=== PATIENT | female | born 1970 | race Caucasian/White ===

== ENCOUNTER → 2016-05-20 | Outpatient (CLI) | payer MEDICARE, BC ==
[2016-05-20 12:27] LABS: ALT 31 U/L (9-52); AST 14 U/L (14-36); Cholesterol 166 mg/dL (<200); HDL Cholesterol 61 mg/dL (40-60); Triglycerides 158 mg/dL (<150)
== END | disposition home or self-care (01) ==
LOC: LABWHC1 11:36
PROVIDERS: ATTEND Internal Medicine Interventional Cardiology
DX: E78.2 Mixed hyperlipidemia (principal)
CPT/HCPCS: 36415; 80061; 84450; 84460

== ENCOUNTER → 2016-05-27 | Outpatient (CLI) | payer MEDICARE, BC ==
--- NOTE | 2016-05-27 18:02 | PN ---
DATE OF SERVICE: 05/27/2016 This patient is a 46-year-old lady who has been followed in the sleep center for treatment of severe obstructive sleep apnea/hypopnea syndrome; apnea-hypopnea index 48.1 by results of sleep study in 2014. Patient is on treatment with CPAP every night for the whole night. [place] Sleepiness Scale today is 10. Patient's weight has increased since titration from 323.1 pounds up to 352 pounds today, which is about 30 pounds up. Patient did not bring her CPAP unit with her, so I do not have information from the machine about usage and about breathing. MEDICATIONS: 1. Metformin. 2. Glimepiride. 3. Plavix. 4. Metoprolol. 5. Atorvastatin. 6. Losartan. 7. Aspirin. 8. Lantus. 9. Flexeril. 10. Hydrocodone. 11. Tramadol. 12. Loratadine. During physical exam, patient is in no distress. VITAL SIGNS: BP 196/84, HR 74, RR 16. Height 5 feet 4 inches. Weight 352. BMI 60.0. Neck 18-3/4 inches in circumference. Temperature 97.3. Oxygen saturation at room air 96%. HEENT: PERRLA, EOMI. Evaluation of oropharynx shows extremely low position of soft palate. ABDOMEN: Obese. LEGS: Some obesity, but possible no swelling. Status post amputation of 2 toes on the left foot. IMPRESSION: 1. Severe obstructive sleep apnea/hypopnea syndrome. Patient continues to use her CPAP equipment, benefitting from treatment. 2. Obesity. Patient's weight has increased by around 30 pounds since previous titration. 3. Patient has some daytime sleepiness. [place] Sleepiness Scale is 10. 4. Hypertension. 5. Coronary artery disease, status post stent insertion. 6. Diabetes mellitus. 7. Status post amputation of 2 toes on the left foot. 8. Diabetic retinopathy. 9. Diabetic peripheral neuropathy. 10. Balance problems, but patient believes that her balance problems are mostly related to absence of toes. 11. Status post carotid endarterectomy. PLAN: 1. Continue treatment with CPAP every night for the whole night. 2. Follow-up visit in several months to check apnea-hypopnea index reading from the machine because patient's weight increased significantly. If index is increased, we may need to proceed with CPAP re-titration. 3. Losing weight. 4. Sleep hygiene with regular time in bed for at least 8 hours. 5. Prescription for all necessary CPAP supplies. Thank you very much for allowing me to participate in the management of your patient. Sincerely, Israel Garland MD, PhD, FAASM. Diplomat of [place] [employer], Sleep Medicine Board by [place] [employer], [place] [employer]
== END | disposition home or self-care (01) ==
LOC: SLEEP 13:51
PROVIDERS: ATTEND Internal Medicine
DX: G47.33 Obstructive sleep apnea (adult) (pediatric) (principal); E66.9 Obesity, unspecified; Z68.44 Body mass index [BMI] 60.0-69.9, adult; I10 Essential (primary) hypertension; I25.10 Atherosclerotic heart disease of native coronary artery without angina pectoris; Z95.5 Presence of coronary angioplasty implant and graft; Z89.422 Acquired absence of other left toe(s); E11.319 Type 2 diabetes mellitus with unspecified diabetic retinopathy without macular edema; E11.40 Type 2 diabetes mellitus with diabetic neuropathy, unspecified; R26.89 Other abnormalities of gait and mobility; Z98.890 Other specified postprocedural states; Z79.899 Other long term (current) drug therapy; Z79.4 Long term (current) use of insulin

== ENCOUNTER → 2016-07-15 | Outpatient (CLI) | payer MEDICARE, BC ==
--- NOTE | 2016-07-15 16:03 | PN ---
Patient is a 46-year-old lady who has been followed in the sleep center for treatment of obstructive sleep apnea/hypopnea syndrome. Patient continued to use her CPAP equipment every night for the whole night according to her without significant problems, sometimes she may not get enough sleep because of her family issues related to taking care of her father. I checked her CPAP unit. CPAP pressure is 12 cm of water. Ramp is 5 minutes, humidity at the level of 4. Usage is every night, but usage for more than 4 hours per night is 23 out of 30 which is acceptable level of compliance. Average usage is 6.8 hours. Leak is 13 L/min, which is in normal range. Apnea-hypopnea index reading is only 1.0, which is totally normal. My concern was that patient increased her weight. [place] Sleepiness Scale increased to 14. MEDICATIONS: 1. Glimepiride. 2. Metformin. 3. Plavix. 4. Metoprolol. 5. Atorvastatin. 6. Losartan. 7. Aspirin. 8. Lantus. 9. Flexeril. 10. Hydrocodone, 11. Tramadol. 12. Loratadine. During physical exam, the patient in no distress. PHYSICAL EXAMINATION: Oriented x3. Cranial nerves II to VII intact. There is no fasciculation or atrophy noted. VITAL SIGNS: BP 158/76, HR 75, RR 18, height 5 feet 4 inches, weight 358.0, BMI 61.2. Temp 98.1. Oxygen saturation at room air 96%. HEENT: PERRLA, EOMI oropharynx low position of soft palate. Neck: Supple. No JVD. Thyroid is not palpable. LUNGS: Clear to percussion and to auscultation. Good air exchange. No wheezing or rhonchi. HEART: S1, S2 regular. No murmurs, gallops, or rubs. ABDOMEN: Obese. Soft and nontender. Bowel sounds are present. No organomegaly appreciated. EXTREMITIES: No clubbing or cyanosis. JUNIOR GRAPHIC DESIGNER: Awake, alert, and oriented x3. Cranial nerves 2 to 7 intact. There is no fasciculation or atrophy noted. No focal deficits observed. IMPRESSION: 1. Obstructive sleep apnea/hypopnea syndrome on both on good control with CPAP at 12 cm of water. Patient demonstrated great compliance with treatment, benefiting from treatment. 2. Obesity. 3. Hypertension. 4. Coronary artery disease, status post stent insertion. 5. Some symptoms of excessive daytime sleepiness most probably related to the insufficient amount of sleep. 6. Status post amputation of 2 toes on the left foot. 7. Diabetic retinopathy. 8. Diabetic peripheral neuropathy. 9. History of balance problems. 10. Status post carotid endarterectomy. PLAN: 1. Continue treatment with CPAP at the same pressure every night for the whole night. 2. Watching and losing weight. 3. Sleep hygiene with regular time in bed. Patient should sleep at least 7-1/2 hours per night. 4. Prescription for all necessary supplies. 5. Follow-up visit in 6 months. Thank you very much for allowing me to participate in the management of your patient. Sincerely, Israel Garland MD, PhD, FAASM. Diplomat of [place] [employer], Sleep Medicine Board by [place] [employer] [place] [employer] Pick And Shovel Man of [facility] [place] .
== END | disposition home or self-care (01) ==
LOC: SLEEP 13:13
PROVIDERS: ATTEND Internal Medicine
DX: G47.33 Obstructive sleep apnea (adult) (pediatric) (principal); E66.9 Obesity, unspecified; Z68.44 Body mass index [BMI] 60.0-69.9, adult; I10 Essential (primary) hypertension; I25.10 Atherosclerotic heart disease of native coronary artery without angina pectoris; E11.319 Type 2 diabetes mellitus with unspecified diabetic retinopathy without macular edema; E11.40 Type 2 diabetes mellitus with diabetic neuropathy, unspecified; R26.89 Other abnormalities of gait and mobility; Z98.890 Other specified postprocedural states; Z89.422 Acquired absence of other left toe(s); Z79.899 Other long term (current) drug therapy

== ENCOUNTER → 2017-06-16 | Outpatient (CLI) | payer MEDICARE, BC ==
--- NOTE | 2017-06-16 11:53 | SFUN ---
SLEEP STUDY FOLLOW UP NOTE DATE OF SERVICE: 06/16/2017. This 47-year-old lady has been followed in sleep center for treatment of obstructive sleep apnea-hypopnea syndrome. Patient continued to use her equipment every night without significant problems. Does not snore with the machine. [place] Sleepiness Scale is 7. Presently, her main knob in her machine does not work. Other knobs are working, but this is not working, which happened today. I checked patient's CPAP unit. CPAP pressure is 12 cm of water. Ramp time is 5 minutes. Usage is every night and 22/30 nights for more than 4 hours. Average usage is 6.4 hours. Leak is 40 L/minute which is acceptable. Total apnea-hypopnea index for the last month is only 0.9, which is perfect. MEDICATIONS: Metformin, glimepiride, metoprolol, losartan, atorvastatin, aspirin, cyclobenzaprine, loratadine, tramadol, Tylenol as needed. PHYSICAL EXAM: During physical exam, patient in no distress. VITAL SIGNS: BP 209/71 on right arm and 188/77 on the left arm, HR 80, RR 16, height 5 feet 4 inches, weight 351, BMI 60.2. The patient lost about 8 pounds since previous visit about 1 year ago. Temperature 96.8, oxygen saturation room air 96%. HEENT: PERRLA, EOMI. Oropharynx low position of soft palate. NECK: Supple, no JVD. Thyroid is not palpable. LUNGS: Clear to percussion and to auscultation. Good air exchange. No wheezing or rhonchi. HEART: S1, S2 regular. No murmurs, gallops, or rubs. ABDOMEN: Obese. EXTREMITIES: No clubbing or cyanosis. QUALITY NURSE: Awake, alert, and oriented X3. Cranial nerves 2 to 7 intact. There is no fasciculation or atrophy. noted. No focal deficits observed. The patient has some balance problems, walks with a walker. IMPRESSION: 1. Obstructive sleep apnea-hypopnea syndrome. Patient demonstrated good compliance with treatment benefitting from treatment, normal respiration on CPAP. 2. Obesity. patient lost 8 pounds since previous visit. 3. Hypertension. 4. Coronary artery disease, status post stent insertion. 5. Some balance problems. Patient using walker. 6. Status post amputation of 2 toes of the left foot. 7. Diabetes mellitus. 8. Diabetic retinopathy. 9. History of peripheral neuropathy secondary to diabetes. 10.Status post carotid endarterectomy. PLAN: 1. Continue treatment with CPAP every night. 2. We fit patient with a different nasal mask and patient likes this mask. 3. Prescription for all necessary CPAP supplies including new type of nasal mask. 4. Losing weight. 5. No driving if feeling sleepiness. 6. Follow-up visit in 1 year or earlier if patient has any problems. Prescription to check if necessary to fix the patient's CPAP unit, the main knob in the unit does not work now. Thank you very much for allowing me to participate in management of your patient. Sincerely, Israel Garland MD, PhD, FAASM Diplomat of [place] [employer] [place] [employer] Personal Fitness Trainer of [facility] [place] FELIPE / NATALIE: [id number] /
== END ==
LOC: SLEEP 10:52
PROVIDERS: ATTEND Internal Medicine
DX: G47.33 Obstructive sleep apnea (adult) (pediatric) (principal); E66.9 Obesity, unspecified; I10 Essential (primary) hypertension; I25.10 Atherosclerotic heart disease of native coronary artery without angina pectoris; E11.319 Type 2 diabetes mellitus with unspecified diabetic retinopathy without macular edema; E11.42 Type 2 diabetes mellitus with diabetic polyneuropathy; Z95.5 Presence of coronary angioplasty implant and graft; Z98.890 Other specified postprocedural states; Z99.89 Dependence on other enabling machines and devices; Z89.422 Acquired absence of other left toe(s); Z79.84 Long term (current) use of oral hypoglycemic drugs; Z79.899 Other long term (current) drug therapy; Z79.82 Long term (current) use of aspirin; Z79.891 Long term (current) use of opiate analgesic

== ENCOUNTER → 2017-10-14 | Outpatient (CLI) | payer MEDICARE, BC ==
[2017-10-14 13:01] LABS: Albumin 3.8 g/dL (3.5-5.0); Calcium 9.1 mg/dL (8.4-10.2); Potassium 4.9 mmol/L (3.5-5.1); Total Bilirubin 0.5 mg/dL (0.2-1.3); Total Protein 6.9 g/dL (6.3-8.2)
== END | disposition home or self-care (01) ==
LOC: LABWHC1 12:32
PROVIDERS: ATTEND Internal Medicine Interventional Cardiology
DX: E78.2 Mixed hyperlipidemia (principal)
CPT/HCPCS: 36415; 80053; 80061

== ENCOUNTER → 2017-10-27 | Outpatient (CLI) | payer MEDICARE, BC ==
--- NOTE | 2017-10-27 18:28 | PN ---
PROGRESS NOTE DATE OF SERVICE: 10/27/2017 This patient is a 47-year-old lady who has been followed in the sleep center for treatment of obstructive sleep apnea-hypopnea syndrome. The patient received a new CPAP unit because her previous unit had some technical problem with starting. Patient received her new unit about one and a half months ago and she is able to use her equipment every night for the whole night without significant problem. Machine is working well. She sleeps well with the machine. No snoring. [place] Sleepiness Scale is 9. I checked the patient's CPAP unit. CPAP pressure is 12 cm of water. Leak is only 12 L/minute, which is within normal range. Apnea-hypopnea index is only 1.1, which is perfect. Usage is every night and /30 nights for more than 4 hours. Average usage is 7.3 per hours. MEDICATIONS: 1. Metformin. 2. Glimepiride. 3. Metoprolol. 4. Losartan. 5. Atorvastatin. 6. Aspirin. 7. Cyclobenzaprine. 8. Loratadine. 9. Tramadol. 10.Tylenol as needed. PHYSICAL EXAMINATION: GENERAL A pleasant lady in no distress. VITAL SIGNS: BP left arm 200/78, right arm 186/63, HR 72, RR 16. Weight 55.8. Temperature 98.8. Oxygen saturation at room air 98%. HEENT: PERRLA, EOMI. Evaluation of oropharynx showed tongue protrudes midline; low position of soft palate. NECK: Supple. No JVD. Thyroid is not palpable. LUNGS: Clear to percussion and to auscultation. Good air exchange. No wheezing or rhonchi. HEART: S1, S2 regular. No murmurs, gallops or rubs. ABDOMEN: Obese. EXTREMITIES : No clubbing or cyanosis. HABITAT BIOLOGIST: Awake, alert, and oriented X3. Cranial nerves 2 to 7 intact. There is no fasciculation or atrophy. noted. No focal deficits observed. Patient uses a walker for balance problems. IMPRESSION: 1. Obstructive sleep apnea-hypopnea syndrome, controlled with CPAP at 12 cm of water. Patient demonstrated practically 100% compliance with treatment, benefitting from treatment. 2. Obesity. 3. Hypertension. 4. Coronary artery disease. 5. Balance problem. 6. Status post amputation of 2 toes on the left foot. 7. Diabetes mellitus. 8. Diabetic retinopathy. 9. History of peripheral neuropathy secondary to diabetes. 10.Status post carotid endarterectomy. PLAN: 1. Patient will continue to use her CPAP equipment every night. 2. Losing weight. 3. Sleep hygiene with regular time in bed for at least 8 hours. 4. No driving if feeling any sleepiness. 5. I will follow with all necessary prescription for CPAP supplies, including mask, tube, filters. 6. Follow-up visit in one year, or earlier if patient has any problems related to CPAP treatment. Thank you very much for allowing me to participate in the management of your patient. Sincerely, Israel Garland MD, PhD, FAASM Diplomat of [place] [employer] Specialties [place] Board of Internal Medicine Electrocardiogram Technician of [facility] [place] MMODL / IJN: [id number] /
== END | disposition home or self-care (01) ==
LOC: SLEEP 15:40
PROVIDERS: ATTEND Internal Medicine
DX: G47.33 Obstructive sleep apnea (adult) (pediatric) (principal); E66.9 Obesity, unspecified; I10 Essential (primary) hypertension; I25.10 Atherosclerotic heart disease of native coronary artery without angina pectoris; E11.319 Type 2 diabetes mellitus with unspecified diabetic retinopathy without macular edema; Z89.422 Acquired absence of other left toe(s); Z86.79 Personal history of other diseases of the circulatory system; Z95.828 Presence of other vascular implants and grafts; Z79.84 Long term (current) use of oral hypoglycemic drugs; Z79.82 Long term (current) use of aspirin; Z79.891 Long term (current) use of opiate analgesic; Z79.899 Other long term (current) drug therapy

== ENCOUNTER 2017-12-17 17:50 | Emergency (ER) | payer MEDICARE, BC ==
[2017-12-17 18:15] VITALS: BP 161/66; PULSE 82; RESP 18; TEMP 98.2
[2017-12-17] MEDS ORDERED: ACETAMINOPHEN TAB 325 MG TAB PO STA (18:25)
--- NOTE | 2017-12-17 18:37 | ED ---
Lower Extremity Injury HPI - General Chief Complaint: Extremity Injury, Lower Stated Complaint: left left injury Time Seen by Provider: 12/17/17 18:18 Source: patient Mode of arrival: ambulatory Limitations: no limitations - History of Present Illness Initial Comments: Thisis a 47yo female with hx of DMII with left great and 2nd toe amputation and peripheral neuropath of the feet b/l, HTN, CAD with stent who presents today for cc of right bravo pain/bruising. Pt stated that she was walking in her backyard when she stepped into a hole that the dog had dug. This cause he to fall forward onto the porch hitting her bravo on the step. Pt denies fallling hitting her head, pain in the hands/wrists or injury to any other extremity. Pt states that she was not dizzy, experiencing chest pain or dsypnea prior to the fall stating it was mechanical in nature. Pt admitted to pain at the site of contact and bruising. Pt states that she does not recall rolling her ankle however she is not sure, but she is having mild discomfort in the left ankle. Pt denies any new numbness, tingling. Pt denies muscle weakness of decreased ROM at ankle or feet b/l. Pt is able to weight bear and ambulate without difficulty. Remainder ROS (-). Pt stated she presented today to make sure there were no fractures. - Related Data Home Medications Medication Instructions Recorded Confirmed Aspirin 325 mg PO DAILY 12/19/13 03/12/14 Cyclobenzaprine [Flexeril] 10 mg PO HS PRN 12/19/13 03/12/14 Glimepiride [Amaryl] 1 mg PO [id number] 12/19/13 03/12/14 Loratadine [Claritin] 10 mg PO DAILY PRN 12/19/13 03/12/14 Simvastatin [Zocor] 40 mg PO HS 12/19/13 03/12/14 traMADol HCl [Ultram] 100 mg PO TID PRN 12/19/13 03/12/14 Insulin Glargine [Lantus] 20 unit INJ QAM 02/28/14 03/12/14 Losartan [Cozaar] 50 mg PO HS 02/28/14 03/12/14 Previous Rx's Medication Instructions Recorded Metoprolol Tartrate [Lopressor] 50 mg PO BID #60 tab 12/28/13 Clopidogrel [Plavix] 75 mg PO DAILY #90 tab 03/13/14 metFORMIN HCL [Glucophage] 500 mg PO BID #0 03/13/14 Allergies Allergy/AdvReac Type Severity Reaction Status Date / Time lisinopril AdvReac Cough Verified 12/17/17 18:15 Review of Systems ROS Statement: Those systems with pertinent positive or pertinent negative responses have been documented in the HPI. ROS Other: All systems not noted in ROS Statement are negative. Constitutional: Denies: fever, chills Eyes: Denies: vision change Respiratory: Denies: cough, dyspnea Cardiovascular: Denies: chest pain, palpitations, dyspnea on exertion Gastrointestinal: Denies: abdominal pain, nausea, vomiting, diarrhea, constipation Genitourinary: Denies: urgency, dysuria, frequency Musculoskeletal: Reports: as per HPI Skin: Reports: as per HPI, change in color (brusing left bravo) Neurological: Denies: headache, weakness, numbness, paresthesias, confusion, abnormal gait Past Medical History Past Medical History: Diabetes Mellitus, GERD/Reflux, Hyperlipidemia, Hypertension, Musculoskeletal Disorder, Osteoarthritis (OA) Additional Past Medical History / Comment(s): vericose veins, hx renal failure 2009, rt ear - loss of "high tones", RECENT SINUS INFECTION, FINISHED COURSE OF CIPRO, History of Any Multi-Drug Resistant Organisms: None Reported Past Surgical History: Orthopedic Surgery Additional Past Surgical History / Comment(s): left big toe & 2nd toe removed Past Anesthesia/Blood Transfusion Reactions: Postoperative Nausea & Vomiting ( PONV) Past Psychological History: Depression Smoking Status: Never smoker Past Alcohol Use History: Rare Past Drug Use History: None Reported General Exam - General Exam Comments Initial Comments: General: The patient is awake and alert, in no distress, and does not appear acutely ill. Eye: Pupils are equal, round and reactive to light, extra-ocular movements are intact. No nystagmus. There is normal conjunctiva bilaterally. No signs of icterus. Ears, nose, mouth and throat: There are moist mucous membranes and no oral lesions. Neck: The neck is supple, there is no tenderness or JVD. Cardiovascular: There is a regular rate and rhythm. No murmur, rub or gallop is appreciated. Respiratory: Lungs are clear to auscultation, respirations are non-labored, breath sounds are equal. No wheezes, stridor, rales, or rhonchi. Musculoskeletal: Hematoma to the left anterior bravo with surrounding ecchymosis. No abrasion or lacerations. Normal ROM with dorsiflexion, extension , inversion and eversion of the ankle joints b/l, full ROM at the knees b/l, no tenderness. Strength 5/5of the LE equally b/l. Sensation intact of the LE until level on ankles, pt states she has had no feeling in feet since 2008. +2 DP pulses equal bilaterally 2+. Capillary refill <2seconds. Neurological: A&O x 3. CN II-XII intact, There are no obvious motor or sensory deficits. Coordination appears grossly intact. Speech is normal. Skin: Skin is warm and dry and no rashes or lesions are noted. Psychiatric: Cooperative, appropriate mood & affect, normal judgment. Limitations: no limitations Course Vital Signs 12/17/17 18:14 Temperature 98.2 F Pulse Rate 82 Respiratory 18 Rate Blood Pressure 161/66 O2 Sat by Pulse 96 Oximetry Medical Decision Making - Medical Decision Making XR left ankle, tibia/fibula obtained revealing no acute fracture, large hematoma of anterior tibia ~0ost9bm in size. Pt denied new knee pain and there was no tenderness on exam. Pt states she has known OA of the knees b/l she is following her PCP for. pt given tylenol 650mg for pain mgmt. MSK exam unremarkable, compartments soft and compressible. there is a large hematoma to the left anterior bravo that is tender to palpation. pt does take ASA but no other anticoagulants. Case discussed with Dr. Alejo at this time we feel pt is stable for d/c with PCP f/u in 1-2 days. Pt was instructed to apply heat for hematoma resporption and educated that these hemtomas may take a few weeks to a month for complete reabsorption. In addition pt was instructed to take ibuprofen or tylenol and needed for pain. pt verbalized agreement with plan, denied questions at this time. d/c in stable condition. Disposition Clinical Impression: Hematoma of left lower extremity Disposition: HOME SELF-CARE Condition: Good Instructions: Hematoma (ED) Additional Instructions: Please use over the counter medication as discussed. Please follow-up with family doctor in the next 2 days of symptoms have not improved. Please return to emergency room if the symptoms increase or worsen or for any other concerns. Is patient prescribed a controlled substance at d/c from ED?: No Referrals: Anabel Crawford MD [Primary Care Provider] - 1-2 days Time of Disposition: 19:17
--- NOTE | 2017-12-17 18:58 | XR ---
EXAMINATION TYPE: XR ankle complete LT DATE OF EXAM: 12/17/2017 COMPARISON: None HISTORY: Pain, bruising, fall TECHNIQUE: Three-view left ankle FINDINGS: Soft tissue swelling is over the left ankle. The ankle mortise is intact. No displaced frac tures are evident. Plantar and Achilles tendon calcaneal heel spurs are present. Vascular calcificati on is present. Follow-up study can be performed 7-10 days from acute trauma for continued pain. IMPRESSION: 1. No acute osseous abnormality. 2. Correlate for diffuse soft tissue swelling.
--- NOTE | 2017-12-17 19:00 | XR ---
EXAMINATION TYPE: XR tibia fibula LT DATE OF EXAM: 12/17/2017 COMPARISON: 01/30/2013 HISTORY: Fall, pain lower leg pain and bruising TECHNIQUE: 2 view left tibia and fibula FINDINGS: No displaced fractures are identified. There is some progression of degenerative changes at the knee joint space. There is a calcific density above the tibial spines which was not identified p reviously. An avulsion is not excluded. Consider dedicated images over the knee there is pain at the knee. Distal foreleg appears intact. There is soft tissue swelling anterior to the distal diaphyseal tibia. Underlying hematoma may be present. IMPRESSION: 1. Soft tissue swelling anterior distal tibia may have an underlying hematoma estimated at 2.3 x 6.5 cm. 2. There is a change at the knee joint space with new calcific appearance above the tibial spines. Th ere is pain at the knee, dedicated knee images would be recommended.
== END 2017-12-17 19:28 | disposition home or self-care (01) ==
LOC: EC 17:50
DX: S80.12XA Contusion of left lower leg, initial encounter (principal); M17.0 Bilateral primary osteoarthritis of knee; E78.5 Hyperlipidemia, unspecified; I10 Essential (primary) hypertension; E11.42 Type 2 diabetes mellitus with diabetic polyneuropathy; I25.10 Atherosclerotic heart disease of native coronary artery without angina pectoris; Z79.4 Long term (current) use of insulin; Z88.8 Allergy status to other drugs, medicaments and biological substances; Z79.82 Long term (current) use of aspirin; Z79.899 Other long term (current) drug therapy; Z95.5 Presence of coronary angioplasty implant and graft; W17.2XXA Fall into hole, initial encounter; Y93.01 Activity, walking, marching and hiking; Y92.007 Garden or yard of unspecified non-institutional (private) residence as the place of occurrence of the external cause
CPT/HCPCS: 99283

== ENCOUNTER → 2019-01-25 | Outpatient (CLI) | payer MEDICARE, BC ==
--- NOTE | 2019-01-25 14:42 | PN ---
PROGRESS NOTE DATE OF SERVICE: 01/25/2019 A 48-year-old lady who has been followed in the Sleep Center for treatment of obstructive sleep apnea-hypopnea syndrome. Patient continued to use his CPAP equipment every night for the whole night and likes her machine, sleep without significant problems. [place] Sleepiness Scale today is 10. I checked CPAP unit. CPAP pressure is 12 cm of water. Usage is 30/30 nights and 29/30 nights for more than 4 hours with average usage is 7.1 hours per night. Leak is 4 L/minute, which is absolutely perfect. Apnea-hypopnea index 3.7, which is totally normal. MEDICATIONS: Amlodipine, ibuprofen, metformin, glimepiride, metoprolol, losartan, atorvastatin, aspirin, cyclobenzaprine, loratadine, Tylenol as needed. PHYSICAL EXAM: Patient in no distress, BP 145/71, HR 70, RR 16, height 5, 4, weight 352, temperature 97.7, oxygen saturation at room air 95%/ OROPHARYNX: Extremely low position of soft palate. Mallampati 4. ABDOMEN: Obese. Patient walks with a cane. Neck Supple, no JVD. Thyroid is not palpable. LUNGS Clear to percussion and to auscultation. Good air exchange. No wheezing or rhonchi. HEART S1, S2 regular. No murmurs, gallops, or rubs. EXTREMITIES No clubbing or cyanosis. MANAGER OF DISTRIBUTION Awake, alert, and oriented X3. Cranial nerves 2 to 7 intact. There is no fasciculation or atrophy. noted. No focal deficits observed. IMPRESSION: 1. Obstructive sleep apnea-hypopnea syndrome. Patient demonstrated great compliance with treatment, benefitting from treatment. Obesity. 2. Hypertension. 3. Coronary artery disease. 4. History of balance problems. 5. 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 6. Diabetes mellitus. 7. History of diabetic retinopathy. 8. Peripheral neuropathy secondary to diabetes. 9. Status post carotid endarterectomy. PLAN: 1. Prescription for all CPAP supplies including nasal mask, heated tube, filters. 2. Continue to use CPAP equipment every night. 3. Losing weight. 4. Sleep hygiene with regular time in bed for at least 8 hours. 5. No driving if feeling any sleepiness. 6. Follow-up visit in 1 year or earlier if patient has any problems. Thank you very much for allowing me to participate in the management of your patient. Sincerely, Israel Garland MD, PhD, FAASM Diplomat of [place] [employer] [place] [employer] Employment Services Director of [facility] [place] [id number] / NATALIE: [id number] /
== END | disposition home or self-care (01) ==
LOC: SLEEP 13:33
PROVIDERS: ATTEND Internal Medicine
DX: G47.33 Obstructive sleep apnea (adult) (pediatric) (principal); Z99.89 Dependence on other enabling machines and devices; I10 Essential (primary) hypertension; I25.10 Atherosclerotic heart disease of native coronary artery without angina pectoris; E11.42 Type 2 diabetes mellitus with diabetic polyneuropathy; E66.9 Obesity, unspecified; Z86.69 Personal history of other diseases of the nervous system and sense organs; Z87.39 Personal history of other diseases of the musculoskeletal system and connective tissue; Z89.422 Acquired absence of other left toe(s); Z79.84 Long term (current) use of oral hypoglycemic drugs; Z79.891 Long term (current) use of opiate analgesic; Z79.899 Other long term (current) drug therapy; Z79.82 Long term (current) use of aspirin

== ENCOUNTER → 2021-06-17 | Outpatient (CLI) | payer MEDICARE, BC ==
--- NOTE | 2021-06-17 13:25 | SFUN ---
SLEEP CENTER FOLLOW UP NOTE DATE OF SERVICE: 06/17/2021 This 51-year-old lady has been followed in Sleep Center for treatment of obstructive sleep apnea-hypopnea syndrome. The last time I saw this patient was in January 2019. The patient continues to use her CPAP equipment every night for the whole night. She needs to get new supplies for her machine. [place] Sleepiness Scale today is 8, which is in normal range. I checked her CPAP unit. CPAP pressure is 12 cm of water. Usage is 30/30 nights and 27/30 nights for more than 4 hours, average 7.4 hours per night. Leak is 12 L/minute, which is in normal range. Apnea-hypopnea index is 1.7, which is perfect. MEDICATIONS: 1. Amlodipine 10 mg once a day. 2. Ezetimibe 10 mg once a day. 3. Glimepiride 2 mg once a day. 4. Metoprolol 50 mg once a day. 5. Atorvastatin 40 mg once a day. 6. Losartan 100 mg once a day. 7. Aspirin 81 mg once a day. 8. Ibuprofen 800 mg as needed. 9. Cyclobenzaprine 10 mg as needed. PHYSICAL EXAMINATION: GENERAL: Pleasant patient in no distress. VITAL SIGNS: BP 175/67, HR 78, RR 18, height 5 feet 4 inches, weight 368. Body mass index 63.1. Temperature 97.7, oxygen saturation at room air 93%. HEENT: PERRLA, EOMI, evaluation of oropharynx showed tongue protrudes midline. Extremely low position of soft palate; Mallampati IV. NECK: Supple, no JVD. Thyroid is not palpable. LUNGS: Clear to percussion and to auscultation. Good air exchange. No wheezing or rhonchi. HEART: S1, S2 regular. No murmurs, gallops, or rubs. ABDOMEN: Obese. EXTREMITIES: No clubbing or cyanosis. LOCOMOTIVE DRIVER: Awake, alert, and oriented X3. Cranial nerves 2 to 7 intact. There is no fasciculation or atrophy. noted. No focal deficits observed. IMPRESSION: 1. Obstructive sleep apnea-hypopnea syndrome. Patient demonstrated practically 100% compliance with treatment. Normal respiration on treatment. 2. Hypertension. 3. Obesity. Patient's weight increased by on about 16 pounds. Body mass index 63.1. 4. History of balance problems. 5. 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 6. Diabetes mellitus. 7. History of diabetic retinopathy. 8. History of peripheral neuropathy secondary to diabetes. 9. Status post carotid endarterectomy. PLAN: 1. Preferably use soap and water for cleaning. Do not use cleaning system. 2. Patient will continue to use PAP equipment every night for the whole night. 3. Sleep hygiene with regular time in bed for at least 7-1/2 to 8 hours. 4. Precautions related to driving. No driving if feeling sleepiness. 5. I will maintain all necessary prescription for PAP supplies including mask, tube, filters. 6. Watching weight. 7. Follow-up visit in 6 months or earlier if patient has any problems. Thank you very much for allowing me to participate in the management of your patient. Sincerely, Israel Garland MD, PhD, FAASM Diplomat of [employer] Sleep Medicine Board of [employer] Clinical Nurse Leader of [facility] [place] MMODL / IJN: [id number] /
== END | disposition home or self-care (01) ==
LOC: SLEEP 10:01
PROVIDERS: ATTEND Internal Medicine
DX: G47.33 Obstructive sleep apnea (adult) (pediatric) (principal); I10 Essential (primary) hypertension; E66.9 Obesity, unspecified; E11.9 Type 2 diabetes mellitus without complications; Z98.890 Other specified postprocedural states; Z86.39 Personal history of other endocrine, nutritional and metabolic disease; Z86.69 Personal history of other diseases of the nervous system and sense organs

== ENCOUNTER 2021-08-13 10:22 | Emergency (ER) | payer MEDICARE, BC ==
--- NOTE | 2021-08-13 11:05 | XR ---
EXAMINATION TYPE: XR chest 2V DATE OF EXAM: 08/13/2021 COMPARISON: Chest x-ray February 27, 2014 HISTORY: Fever and cough. Chest pain. TECHNIQUE: Frontal and lateral views of the chest are obtained. FINDINGS: There is increased opacity right hilar level. Left lung is clear. No pleural effusion or pneumothorax seen bilaterally. The cardiac silhouette size is stable and upper limits of normal. Th e osseous structures are intact. IMPRESSION: New right infrahilar acute infiltrate and/or edema suspected. Progress study advised.
--- NOTE | 2021-08-13 11:41 | ED ---
General Adult HPI - General Chief complaint: Upper Respiratory Infection Stated complaint: Fever/Cough/SOB Time Seen by Provider: 08/13/21 11:30 Source: patient, RN notes reviewed, old records reviewed Mode of arrival: ambulatory Limitations: no limitations - History of Present Illness Initial comments: This is a well-appearing 51-year-old female presents to the emergency room with complaints of headache, cough, body aches and fever since Tuesday. States exposed to niece who has coronavirus. Patient states she has had her vaccine and her boosters. She denies any chest pain or difficulty in breathing. -: days(s) (2) Location: head Radiation: non-radiation Severity scale (1-10): 7 Quality: aching Consistency: intermittent Associated Symptoms: cough, fever/chills, headaches, other (congestion) - Related Data Home Medications Medication Instructions Recorded Confirmed Aspirin EC [Ecotrin Low Dose] 81 mg PO HS 08/13/21 08/13/21 Atorvastatin Calcium [Lipitor] 40 mg PO HS 08/13/21 08/13/21 Ezetimibe [Zetia] 10 mg PO HS 08/13/21 08/13/21 Glimepiride [Amaryl] 2 mg PO AC-BRKFST 08/13/21 08/13/21 Insulin Glargine,Hum.rec.anlog 48 unit SQ HS 08/13/21 08/13/21 [Basaglar Kwikpen U-100] Losartan Potassium [Cozaar] 100 mg PO DAILY 08/13/21 08/13/21 amLODIPine [Norvasc] 10 mg PO DAILY 08/13/21 08/13/21 Previous Rx's Medication Instructions Recorded Metoprolol Tartrate [Lopressor] 50 mg PO BID #60 tab 12/28/13 metFORMIN HCL [Glucophage] 500 mg PO BID #0 03/13/14 Albuterol Inhaler [Ventolin Hfa 2 puff INHALATION Q4H PRN #8 gm 08/13/21 Inhaler] Azithromycin [Zithromax Z-pack (6 0 mg PO DIRECTED #6 tab 08/13/21 tabs)] Allergies Allergy/AdvReac Type Severity Reaction Status Date / Time lisinopril AdvReac Cough Verified 08/13/21 12:50 Review of Systems ROS Statement: Those systems with pertinent positive or pertinent negative responses have been documented in the HPI. ROS Other: All systems not noted in ROS Statement are negative. Past Medical History Past Medical History: Diabetes Mellitus, GERD/Reflux, Hyperlipidemia, Hypertension, Musculoskeletal Disorder, Osteoarthritis (OA) Additional Past Medical History / Comment(s): vericose veins, hx renal failure 2008, rt ear - loss of "high tones", RECENT SINUS INFECTION, FINISHED COURSE OF CIPRO, History of Any Multi-Drug Resistant Organisms: None Reported Past Surgical History: Orthopedic Surgery Additional Past Surgical History / Comment(s): left big toe & 2nd toe removed Past Anesthesia/Blood Transfusion Reactions: Postoperative Nausea & Vomiting (PONV) Past Psychological History: Depression Smoking Status: Never smoker Past Alcohol Use History: Rare Past Drug Use History: None Reported General Exam Limitations: no limitations General appearance: alert, in no apparent distress Head exam: Present: atraumatic Eye exam: Absent: scleral icterus, conjunctival injection ENT exam: Present: normal exam, normal oropharynx, mucous membranes moist Neck exam: Present: full ROM. Absent: tenderness, meningismus, lymphadenopathy, thyromegaly Respiratory exam: Present: normal lung sounds bilaterally. Absent: respiratory distress, accessory muscle use Cardiovascular Exam: Present: regular rate Extremities exam: Present: pedal edema (Trace edema, patient states is normal for her) Neurological exam: Present: alert, oriented X3 Psychiatric exam: Present: normal affect, normal mood Skin exam: Present: warm, dry, normal color. Absent: cyanosis, diaphoretic, pallor Course Vital Signs 08/13/21 08/13/21 08/13/21 10:34 11:49 12:57 Temperature 98.4 F Pulse Rate 76 69 Respiratory 16 18 17 Rate Blood Pressure 158/69 128/66 O2 Sat by Pulse 95 95 Oximetry 08/13/21 13:52 Temperature 98.5 F Pulse Rate 70 Respiratory 18 Rate Blood Pressure 166/54 O2 Sat by Pulse 96 Oximetry Medical Decision Making - Medical Decision Making Patient is positive for coronavirus. Symptoms started 2 days ago. She did receive vaccine and boosters. She was agreeable to receiving the monoclonal antibodies infusion. She tolerated this infusion well. On chest x-ray there is evidence a new right infrahilar infiltrate. She'll be treated with antibiotics. Vital signs are stable patient's oxygen saturation 96% room air. She was discharged home and directed to self quarantine and return to the emergency room with any new or concerning symptoms. She is agreeable to this plan of care. Case discussed with Dr. Rivera. - Lab Data Lab Results 08/13/21 Range/Units 10:48 Coronavirus (PCR) Detected A (Not Detectd) Disposition Clinical Impression: COVID-19, Pneumonia Disposition: HOME SELF-CARE Condition: Good Instructions (If sedation given, give patient instructions): Viral Pneumonia (ED), Upper Respiratory Infection (ED), COVID-19 (Coronavirus Disease 2019) (ED) Additional Instructions: Increase your fluid intake. Take Zithromax as prescribed for pneumonia. Return to the emergency room with any new or concerning symptoms. Follow-up with the primary care doctor next week. Self quarantine for 10 days from symptom onset. If after 5 days you have no symptoms, you can go into public with just a mask. You can take vitamin C, vitamin D and zinc to improve immune health. Prescriptions: Albuterol Inhaler [Ventolin Hfa Inhaler] 2 puff INHALATION Q4H PRN #8 gm PRN Reason: Dyspnea Azithromycin [Zithromax Z-pack (6 tabs)] 0 mg PO DIRECTED #6 tab Is patient prescribed a controlled substance at d/c from ED?: No Referrals: Anabel Crawford MD [Primary Care Provider] - 1-2 days Time of Disposition: 13:01
[2021-08-13] MEDS ORDERED: cefTRIAXone IN SWFI 1,000 MG/10 ML SYRINGE IVP STA (11:57)
[2021-08-13] MEDS ORDERED: BEBTELOVIMAB (EUA) 175 MG/2 ML VIAL IV ONE (12:15)
[2021-08-13 13:54] VITALS: BP 166/54; PULSE 70; RESP 18; TEMP 98.5
== END 2021-08-13 13:54 | disposition home or self-care (01) ==
LOC: EC 10:22
DX: U07.1 COVID-19 (principal); J12.82 Pneumonia due to coronavirus disease 2019; I10 Essential (primary) hypertension; E11.9 Type 2 diabetes mellitus without complications; Z88.8 Allergy status to other drugs, medicaments and biological substances
CPT/HCPCS: 87635; 71046; 99285; 96374; J0696; Q0222

== ENCOUNTER → 2021-10-22 | Outpatient (CLI) | payer MEDICARE, BC ==
[2021-10-23 03:13] LABS: ALT 16 U/L (8-44); AST 10 U/L (13-35); African American GFR (CKD) 54.6 (60.0-200.0); Albumin 3.9 g/dL (3.8-4.9); Albumin/Globulin Ratio 1.18 (1.60-3.17); Alkaline Phosphatase 131 U/L (41-126); BUN/Creat Ratio 17.46 Ratio (12.00-20.00); Blood Urea Nitrogen 22.7 mg/dL (9.0-27.0); Calcium 9.4 mg/dL (8.7-10.3); Carbon Dioxide 25.4 mmol/L (20.0-27.5); Chloride 103 mmol/L (96-109); Chol/HDL Ratio 2.59 Ratio; Globulin 3.3 g/dL (1.6-3.3); Glucose 182 mg/dL (70-110); LDL Cholesterol,Calculated 68.6 mg/dL (0.0-131.0); Non-African American GFR(CKD) 47.1 (60.0-200.0); Potassium 4.7 mmol/L (3.5-5.5); Sodium 141 mmol/L (135-145); Total Protein 7.2 g/dL (6.2-8.2)
== END | disposition home or self-care (01) ==
LOC: LABWHC1 14:52
PROVIDERS: ATTEND Internal Medicine Interventional Cardiology
DX: E78.2 Mixed hyperlipidemia (principal)
CPT/HCPCS: 36415; 80053; 80061

== ENCOUNTER → 2022-01-20 | Outpatient (CLI) | payer MEDICARE, BC ==
--- NOTE | 2022-01-20 11:57 | P.PN ---
Subjective DATE: 01/20/2022 FOLLOW UP VISIT. Patient with obstructive sleep apnea hypopnea syndrome return to sleep center for follow-up visit. Information from previous visit have been reviewed. Patient is using PAP equipment every night for the whole night, getting PAP supplies in time. The patient does not have significant problems with the mask, PAP unit and humidification. [place] sleepiness scale is 10, which is borderline. I checked information from PAP unit. PAP unit pressure 12 cm H2O. Usage is 100 % and 90% for more then 4 hours, average 6.8 hours per night. Leak is 25 l/, which is in acceptable range. Apnea Hypopnea Index is 1.0, which is perfect. MEDICATIONS:1. Metformin 500 mg twice a day 2. Metoprolol 50 mg twice a day 3. Glimepiride 2 mg once a day 4. Atorvastatin 40 mg once a day 5. Losartan 100 mg once a day 6. Amlodipine 10 mg once a day 7. Ezotimibe 10 mg once a day 8. Cyclobenzaprine 10 mg once a day 9. Victoza 10. Basaglar 11. Aspirin 81 mg once a day During physical exam: GENERAL: A pleasant patient without any distress. VITAL SIGNS: BP 158/69, HR 85, RR 18, weight 369.4, temperature 96.8, oxygen sa turation at room air 96 % . HEENT: PERRLA, EOMI.low position of soft palate, Mallapati 4 . NECK: Supple. No JVD. LUNGS: Clear to percussion and to auscultation. Good air exchange. No wheezing or rhonchi. HEART: S1, S2 regular. ABDOMEN: Soft and nontender. Obese EXTREMITIES: No clubbing or cyanosis. CARD FIXER: Awake, alert, and oriented x3. No focal deficit. Impressions: 1. Obstructive sleep apnea-hypopnea syndrome. Patient demonstrated great compliance with treatment, benefiting from treatment. 2. Obesity, weight is about the same as during last visit. 3. Diabetes mellitus. 4. Diabetic neuropathy. 5. Status post 2 toys amputation. 6. Hypertension. 7. Status post carotid endarterectomy. 8. []. 9. []. 10. []. 11.[]. 12.[]. Plan: 1. Continue using PAP equipment every night for the whole night. 2. To change air filter at least 1-2 times per month. 3. PAP unit should stay lower then position of the head. 4. Advised patient to remove all remaining water from humidifier canister daily and make it dry after each usage. Refill canister with fresh distilled water before each usage. 5. Sleep hygiene with regular time in bed for at least 8 hours. 6. Precautions related to driving. No driving if feel any sleepiness. 7. I will maintain prescription for PAP supplies including mask, tube, filters. 8. Follow up visit in 6 months or earlier if patient has any problems. 9. Watching and aggressive losing weight. Thank you very much for allowing me to participate in the management of your patient. Israel Garland MD, PhD, FAASM. Diplomat of [place] [employer], Sleep Medicine Board by [place] [employer] Aircraft Mechanic Arm[employer] of [facility] [place]
== END ==
LOC: SLEEP 10:51
PROVIDERS: ATTEND Internal Medicine
DX: G47.33 Obstructive sleep apnea (adult) (pediatric) (principal); E11.40 Type 2 diabetes mellitus with diabetic neuropathy, unspecified; I10 Essential (primary) hypertension; Z98.62 Peripheral vascular angioplasty status; Z88.8 Allergy status to other drugs, medicaments and biological substances; Z79.84 Long term (current) use of oral hypoglycemic drugs; Z89.429 Acquired absence of other toe(s), unspecified side
CPT/HCPCS: 99212

== ENCOUNTER 2022-02-22 07:40 | Emergency (ER) | payer MEDICARE, BC ==
[2022-02-22 07:58] VITALS: RESP 18
--- NOTE | 2022-02-22 08:12 | XR ---
EXAMINATION TYPE: XR chest 2V DATE OF EXAM: 02/22/2022 COMPARISON: Chest x-ray August 13, 2021 HISTORY: Congestion. TECHNIQUE: Frontal and lateral views of the chest are obtained. FINDINGS: There is mild cardiomegaly with central increased markings bilaterally redemonstrated. No pleural effusion or pneumothorax seen bilaterally. The osseous structures are intact. IMPRESSION: Mild cardiomegaly with mild central vascular congestion, correlate for CHF exacerbation.
--- NOTE | 2022-02-22 10:17 | ED ---
URI HPI - General Chief Complaint: Upper Respiratory Infection Stated Complaint: Chest congestion, poss covid Time Seen by Provider: 02/22/22 07:45 Source: patient, RN notes reviewed Mode of arrival: ambulatory Limitations: no limitations - History of Present Illness Initial Comments: 51-year-old female who presents with complaints of 3 days of nasal congestion cough she's had fevers and chills coughing up slight amount of yellowish phlegm. Short of breath some exertional dyspnea. No chest pain no abdominal pain concern for infectious disease exposure. MD Complaint: fever, cough, sore throat, nasal congestion, other - Related Data Home Medications Medication Instructions Recorded Confirmed Aspirin EC [Ecotrin Low Dose] 81 mg PO HS 08/13/21 02/22/22 Atorvastatin Calcium [Lipitor] 40 mg PO HS 08/13/21 02/22/22 Ezetimibe [Zetia] 10 mg PO HS 08/13/21 02/22/22 Glimepiride [Amaryl] 2 mg PO AC-BRKFST 08/13/21 02/22/22 Insulin Glargine,Hum.rec.anlog 50 unit SQ DAILY@1700 08/13/21 02/22/22 [Basaglar Kwikpen U-100] Losartan Potassium [Cozaar] 100 mg PO HS 08/13/21 02/22/22 amLODIPine [Norvasc] 10 mg PO DAILY 08/13/21 02/22/22 Liraglutide [Victoza 3-Sterling] 1.2 mg SQ DAILY@1700 02/22/22 02/22/22 Previous Rx's Medication Instructions Recorded Metoprolol Tartrate [Lopressor] 50 mg PO BID #60 tab 12/28/13 metFORMIN HCL [Glucophage] 500 mg PO BID #0 03/13/14 Azithromycin [Zithromax Z Pack] 1 tab PO DIRECTED #6 tab 02/22/22 predniSONE [Deltasone] 20 mg PO BID #10 tab 02/22/22 Allergies Allergy/AdvReac Type Severity Reaction Status Date / Time lisinopril AdvReac Cough Verified 02/22/22 11:21 Review of Systems ROS Statement: Those systems with pertinent positive or pertinent negative responses have been documented in the HPI. ROS Other: All systems not noted in ROS Statement are negative. Past Medical History Past Medical History: Diabetes Mellitus, GERD/Reflux, Hyperlipidemia, Hypertension, Musculoskeletal Disorder, Osteoarthritis (OA) Additional Past Medical History / Comment(s): vericose veins, hx renal failure 2009, rt ear - loss of "high tones", RECENT SINUS INFECTION, FINISHED COURSE OF CIPRO, History of Any Multi-Drug Resistant Organisms: None Reported Past Surgical History: Orthopedic Surgery Additional Past Surgical History / Comment(s): left big toe & 2nd toe removed Past Anesthesia/Blood Transfusion Reactions: Postoperative Nausea & Vomiting (PONV) Past Psychological History: Depression Smoking Status: Never smoker Past Alcohol Use History: Rare Past Drug Use History: None Reported General Exam - General Exam Comments Initial Comments: Is a well-developed well-nourished awake alert oriented 4 female Limitations: no limitations General appearance: alert, in no apparent distress Head exam: Present: atraumatic, normocephalic, normal inspection Eye exam: Present: normal appearance, PERRL, EOMI. Absent: scleral icterus, conjunctival injection, periorbital swelling ENT exam: Present: mucous membranes moist, other (Mild posterior pharyngeal hyperemia no exudate seen) Neck exam: Present: normal inspection, full ROM, other. Absent: tenderness, meningismus, lymphadenopathy Respiratory exam: Present: decreased breath sounds (Discharge or bruits). Absent: respiratory distress, wheezes, rales, rhonchi, stridor Cardiovascular Exam: Present: regular rate, normal rhythm, normal heart sounds. Absent: systolic murmur, diastolic murmur, rubs, gallop, clicks GI/Abdominal exam: Present: soft, normal bowel sounds. Absent: distended, tenderness, guarding, rebound, rigid Extremities exam: Present: normal inspection, full ROM, normal capillary refill. Absent: tenderness, pedal edema, joint swelling, calf tenderness Back exam: Present: normal inspection Neurological exam: Present: alert, oriented X3, CN II-XII intact Psychiatric exam: Present: normal affect, normal mood Skin exam: Present: warm, dry, intact, normal color. Absent: rash Course Vital Signs 02/22/22 02/22/22 02/22/22 07:49 07:56 10:07 Temperature 98.6 F Pulse Rate 79 81 Respiratory 20 18 18 Rate Blood Pressure 156/69 196/83 O2 Sat by Pulse 99 95 Oximetry - Reevaluation(s) Reevaluation #1: 02/22/22 10:17 Patient: Covid Test is negative. X-ray shows evidence of increased pulmonary vascular congestion further testing will be conducted I did discuss this with the patient. Medical Decision Making - Medical Decision Making I did discuss findings with the patient. Negative for COVID-19 negative for influenza. Sensation appears be consistent with an infectious etiology. Patient will be placed on appropriate medication. She does have a up-to-date albuterol inhaler home. Additionally she did not take her blood pressure medication today she was urged to take that when she is homeless been riding somewhat high this morning. She is asymptomatic. - Lab Data Result diagrams: 02/22/22 10:13 02/22/22 10:13 Lab Results 02/22/22 02/22/22 02/22/22 Range/Units 07:56 09:34 10:13 WBC 7.8 (3.8-10.6) k/uL RBC 4.86 (3.80-5.40) m/uL Hgb 13.9 (11.4-16.0) gm/dL Hct 42.2 (34.0-46.0) % MCV 86.9 (80.0-100.0) fL MCH 28.6 (25.0-35.0) pg MCHC 33.0 (31.0-37.0) g/dL RDW 13.0 (11.5-15.5) % Plt Count 291 (150-450) k/uL MPV 8.4 Neutrophils % 64 % Lymphocytes % 23 % Monocytes % 7 % Eosinophils % 4 % Basophils % 1 % Neutrophils # 5.0 (1.3-7.7) k/uL Lymphocytes # 1.8 (1.0-4.8) k/uL Monocytes # 0.5 (0-1.0) k/uL Eosinophils # 0.3 (0-0.7) k/uL Basophils # 0.1 (0-0.2) k/uL Sodium (137-145) mmol/L Potassium (3.5-5.1) mmol/L Chloride (98-107) mmol/L Carbon Dioxide (22-30) mmol/L Anion Gap mmol/L BUN (7-17) mg/dL Creatinine (0.52-1.04) mg/dL Est GFR (CKD-EPI)AfAm (>60 ml/min/1.73 sqM) Est GFR (CKD-EPI)NonAf (>60 ml/min/1.73 sqM) Glucose (74-99) mg/dL Calcium (8.4-10.2) mg/dL Magnesium (1.6-2.3) mg/dL Total Bilirubin (0.2-1.3) mg/dL AST (14-36) U/L ALT (4-34) U/L Alkaline Phosphatase (38-126) U/L Creatine Kinase (30-135) U/L NT-Pro-B Natriuret Pep pg/mL Total Protein (6.3-8.2) g/dL Albumin (3.5-5.0) g/dL Coronavirus (PCR) Not Detected (Not Detectd) Influenza Type A RNA Not Detected (Not Detectd) Influenza Type B (PCR) Not Detected (Not Detectd) 02/22/22 02/22/22 Range/Units 10:13 10:13 WBC (3.8-10.6) k/uL RBC (3.80-5.40) m/uL Hgb (11.4-16.0) gm/dL Hct (34.0-46.0) % MCV (80.0-100.0) fL MCH (25.0-35.0) pg MCHC (31.0-37.0) g/dL RDW (11.5-15.5) % Plt Count (150-450) k/uL MPV Neutrophils % % Lymphocytes % % Monocytes % % Eosinophils % % Basophils % % Neutrophils # (1.3-7.7) k/uL Lymphocytes # (1.0-4.8) k/uL Monocytes # (0-1.0) k/uL Eosinophils # (0-0.7) k/uL Basophils # (0-0.2) k/uL Sodium 139 (137-145) mmol/L Potassium 5.1 (3.5-5.1) mmol/L Chloride 106 (98-107) mmol/L Carbon Dioxide 24 (22-30) mmol/L Anion Gap 9 mmol/L BUN 27 H (7-17) mg/dL Creatinine 1.15 H (0.52-1.04) mg/dL Est GFR (CKD-EPI)AfAm 63 (>60 ml/min/1.73 sqM) Est GFR (CKD-EPI)NonAf 55 (>60 ml/min/1.73 sqM) Glucose 196 H (74-99) mg/dL Calcium 9.2 (8.4-10.2) mg/dL Magnesium 1.7 (1.6-2.3) mg/dL Total Bilirubin 0.6 (0.2-1.3) mg/dL AST 16 (14-36) U/L ALT 21 (4-34) U/L Alkaline Phosphatase 159 H (38-126) U/L Creatine Kinase 68 (30-135) U/L NT-Pro-B Natriuret Pep 279 pg/mL Total Protein 7.4 (6.3-8.2) g/dL Albumin 4.2 (3.5-5.0) g/dL Coronavirus (PCR) (Not Detectd) Influenza Type A RNA (Not Detectd) Influenza Type B (PCR) (Not Detectd) - Radiology Data Radiology results: image reviewed (I did read the x-ray evidence of pulmonary vascular increased markings) Disposition Clinical Impression: Asthmatic bronchitis, Hypertension Disposition: ADMITTED IP TO THIS HOSP Condition: Good Instructions (If sedation given, give patient instructions): Acute Bronchitis (ED) Prescriptions: predniSONE [Deltasone] 20 mg PO BID #10 tab Azithromycin [Zithromax Z Pack] 1 tab PO DIRECTED #6 tab Is patient prescribed a controlled substance at d/c from ED?: No Referrals: Anabel Crawford MD [Primary Care Provider] - 1-2 days Decision Date: 02/22/22 Decision Time: 11:44
[2022-02-22 10:20] LABS: Basophils # (A) 0.1 k/uL (0-0.2); Basophils % (A) 1 %; Eosinophils # (A) 0.3 k/uL (0-0.7); Eosinophils % (A) 4 %; HCT 42.2 % (34.0-46.0); HGB 13.9 gm/dL (11.4-16.0); Lymphocytes # (A) 1.8 k/uL (1.0-4.8); Lymphocytes % (A) 23 %; MCH 28.6 pg (25.0-35.0); MCV 86.9 fL (80.0-100.0); Mean Platelet Volume 8.4; Monocytes # (A) 0.5 k/uL (0-1.0); Monocytes % (A) 7 %; Neutrophils % (A) 64 %; Platelet Count 291 k/uL (150-450); RBC 4.86 m/uL (3.80-5.40); WBC 7.8 k/uL (3.8-10.6)
[2022-02-22 10:33] LABS: Albumin 4.2 g/dL (3.5-5.0); Calcium 9.2 mg/dL (8.4-10.2); Magnesium 1.7 mg/dL (1.6-2.3); Potassium 5.1 mmol/L (3.5-5.1); Total Bilirubin 0.6 mg/dL (0.2-1.3); Total Protein 7.4 g/dL (6.3-8.2)
[2022-02-22] MEDS ORDERED: AZITHROMYCIN 500 MG TAB PO STA (11:44)
[2022-02-22] MEDS ORDERED: predniSONE 50 MG TAB PO STA (11:44)
[2022-02-22 12:02] VITALS: BP 147/76; PULSE 80; TEMP 98.4
== END 2022-02-22 12:05 | disposition other institution (70) ==
LOC: EC 07:40
DX: J45.909 Unspecified asthma, uncomplicated (principal); I10 Essential (primary) hypertension; E11.9 Type 2 diabetes mellitus without complications; E78.5 Hyperlipidemia, unspecified; K21.9 Gastro-esophageal reflux disease without esophagitis; M19.90 Unspecified osteoarthritis, unspecified site; F32.A Depression, unspecified; Z79.01 Long term (current) use of anticoagulants; Z79.82 Long term (current) use of aspirin; Z79.02 Long term (current) use of antithrombotics/antiplatelets; Z79.84 Long term (current) use of oral hypoglycemic drugs; Z79.811 Long term (current) use of aromatase inhibitors; Z79.83 Long term (current) use of bisphosphonates; Z79.4 Long term (current) use of insulin; Z79.899 Other long term (current) drug therapy; Z88.8 Allergy status to other drugs, medicaments and biological substances
CPT/HCPCS: 36415; 83880; 80053; 82550; 83735; 85025; 87502; 87635; 71046; 99285; J7512

== ENCOUNTER 2022-03-24 18:16 | Emergency (ER) | payer MEDICARE, BC ==
[2022-03-24] MEDS ORDERED: ACETAMINOPHEN TAB 500 MG TAB PO STA (20:00)
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
--- NOTE | 2022-03-24 20:52 | XR ---
EXAMINATION TYPE: XR ribs RT w pa chest xray DATE OF EXAM: 03/24/2022 8:31 PM INDICATION: Patient age:Female; 51 years old; Reason for study: Right rib pain; COMPARISON: 02/22/2022 TECHNIQUE: Frontal and oblique views of the right ribs with frontal chest radiograph. FINDINGS: The ribs have a normal appearance. No evidence of fracture. Overall, the lungs are clear. The cardiac silhouette is normal in size. The remaining osseous structures are intact. IMPRESSION RIBS: No definite evidence for fracture.
--- NOTE | 2022-03-24 20:55 | XR ---
EXAMINATION TYPE: XR hand complete LT DATE OF EXAM: 03/24/2022 8:31 PM INDICATION: Patient age:Female; 51 years old; Reason for study: Left hand injury; COMPARISON: None TECHNIQUE: Frontal, lateral and oblique views of the left hand were obtained. FINDINGS: Acute oblique fracture through second metacarpal shaft. Additional fracture suggested invol ving the left second metacarpal head with intra-articular extension. Soft tissue swelling is present. IMPRESSION: Acute fracture through the left second metacarpal shaft and head with intra-articular extension into the metacarpophalangeal joint.
[2022-03-24 23:08] VITALS: BP 167/89; PULSE 84; RESP 20; TEMP 98.2
== END 2022-03-24 21:30 | disposition home or self-care (01) ==
LOC: EC 18:16
DX: S62.321A Displaced fracture of shaft of second metacarpal bone, left hand, initial encounter for closed fracture (principal); S20.211A Contusion of right front wall of thorax, initial encounter; S00.03XA Contusion of scalp, initial encounter; S13.4XXA Sprain of ligaments of cervical spine, initial encounter; E11.9 Type 2 diabetes mellitus without complications; I10 Essential (primary) hypertension; E78.5 Hyperlipidemia, unspecified; K21.9 Gastro-esophageal reflux disease without esophagitis; F32.A Depression, unspecified; Z88.8 Allergy status to other drugs, medicaments and biological substances; Z79.82 Long term (current) use of aspirin; Z79.4 Long term (current) use of insulin; Z79.899 Other long term (current) drug therapy; V49.40XA Driver injured in collision with unspecified motor vehicles in traffic accident, initial encounter
CPT/HCPCS: 29125; 70450; 72125; 99284

== ENCOUNTER → 2022-10-06 | Outpatient (CLI) | payer BC, MEDICARE ==
--- NOTE | 2022-10-06 13:35 | P.PN ---
Subjective DATE: 10/06/2022 FOLLOW UP VISIT. Patient with obstructive sleep apnea hypopnea syndrome return to sleep center for follow-up visit. Information from previous visit have been reviewed. Patient is using PAP equipment every night for the whole night, getting PAP supplies in time. The patient does not have significant problems with the mask, PAP unit and humidification. [place] sleepiness scale is 9. I checked information from PAP unit. PAP unit pressure 12 cm H2O. Usage is 100 % for more then 4 hours, average 7.25 hours per night. Leak is increased to 42.5 l/m. Apnea Hypopnea Index is 0.8, which is normal. MEDICATIONS:1. Metformin 2. Metoprolol 3. Amlodipine 4. Atorvastatin 5. Losartan 6. Ezetimibe 7. Cyclobenzaprine 8. Insulin During physical exam: GENERAL: A pleasant patient without any distress. VITAL SIGNS: BP 156/83, HR 78, RR 15 , weight 365, temperature 97.2, oxygen saturation at room air 98 % . HEENT: PERRLA, EOMI.low position of soft palate, Mallapati 4 . NECK: Supple. No JVD. LUNGS: Clear to percussion and to auscultation. Good air exchange. No wheezing or rhonchi. HEART: S1, S2 regular. ABDOMEN: Soft and nontender. Obese EXTREMITIES: No clubbing or cyanosis. PIGMENT PUMPER: Awake, alert, and oriented x3. No focal deficit. Impressions: 1. Obstructive sleep apnea-hypopnea syndrome. Patient demonstrated great compliance with treatment, benefiting from treatment. 2. Obesity BMI 62.6, patient lost 4 pounds since previous visit. 3. Diabetes mellitus. 4. Hypertension. 5. Status post carotid endarterectomy. 6. Status post to 2 toes amputation. Plan: 1. Continue using PAP equipment every night for the whole night. 2. To change air filter at least 1-2 times per month. 3. PAP unit should stay lower then position of the head. 4. Advised patient to remove all remaining water from humidifier canister daily and make it dry after each usage. Refill canister with fresh distilled water before each usage. 5. Sleep hygiene with regular time in bed for at least 8 hours. 6. Precautions related to driving. No driving if feel any sleepiness. 7. I will maintain prescription for PAP supplies including mask, tube, filters. 8. Watching and losing weight. 9. Follow up visit in 6 months or earlier if patient has any problems. Thank you very much for allowing me to participate in the management of your patient. Israel Garland MD, PhD, FAASM. Diplomat of [place] [employer], Sleep Medicine Board by [place] [employer] Merchandising Professor of [facility] [place]
== END ==
LOC: 3 N SLEEP 11:04
PROVIDERS: ATTEND Internal Medicine
DX: G47.33 Obstructive sleep apnea (adult) (pediatric) (principal); E66.9 Obesity, unspecified; E11.9 Type 2 diabetes mellitus without complications; I10 Essential (primary) hypertension; Z68.26 Body mass index [BMI] 26.0-26.9, adult; Z98.890 Other specified postprocedural states; Z79.84 Long term (current) use of oral hypoglycemic drugs; Z79.4 Long term (current) use of insulin; Z79.899 Other long term (current) drug therapy; Z89.422 Acquired absence of other left toe(s); Z88.3 Allergy status to other anti-infective agents; Z99.89 Dependence on other enabling machines and devices
CPT/HCPCS: 99212

== ENCOUNTER → 2023-06-03 | Outpatient (CLI) | payer MEDICARE ==
[2023-06-03 15:16] LABS: BUN/Creat Ratio 21.55 Ratio (12.00-20.00); Blood Urea Nitrogen 23.7 mg/dL (9.0-27.0); Chloride 108 mmol/L (96-109); Chol/HDL Ratio 2.53 Ratio; Glucose 78 mg/dL (70-110); LDL Cholesterol,Calculated 55.7 mg/dL (0.0-131.0); Potassium 5.1 mmol/L (3.5-5.5); Sodium 144 mmol/L (135-145); VLDL Calculation 14.36 mg/dL (5.00-40.00)
[2023-06-03 15:17] LABS: ALT 13 U/L (8-44); AST 14 U/L (13-35); Albumin 3.8 g/dL (3.8-4.9); Albumin/Globulin Ratio 1.12 Ratio (1.60-3.17); Alkaline Phosphatase 102 U/L (41-126); Calcium 9.1 mg/dL (8.7-10.3); Carbon Dioxide 23.5 mmol/L (21.6-31.8); Globulin 3.4 g/dL (1.6-3.3); Total Bilirubin 0.3 mg/dL (0.3-1.2); Total Protein 7.2 g/dL (6.2-8.2)
== END | disposition home or self-care (01) ==
LOC: LABWHC1 09:58
PROVIDERS: ATTEND Internal Medicine Interventional Cardiology
DX: I10 Essential (primary) hypertension (principal); E78.2 Mixed hyperlipidemia
CPT/HCPCS: 36415; 80053; 80061

== ENCOUNTER → 2023-06-22 | Outpatient (CLI) | payer MEDICARE ==
[2023-06-22 11:43] VITALS: BP 146/76; PULSE 69; RESP 16; TEMP 98.1
--- NOTE | 2023-06-22 12:38 | P.PN ---
Subjective DATE: 06/22/2023 FOLLOW UP VISIT. Patient with obstructive sleep apnea hypopnea syndrome return to sleep center for follow-up visit. Information from previous visit have been reviewed. Patient is using PAP equipment every night for the whole night, getting PAP supplies in time. The patient does not have significant problems with the mask, PAP unit and humidification. [place] sleepiness scale is 10, which is borderline. I checked information from PAP unit. PAP unit pressure 12 cm H2O. Usage is 100% for more then 4 hours, average 6.75 hours per night. Leak is slightly increased to 32.2 l/m, which is in acceptable range. Apnea Hypopnea Index is 1.1, which is normal. MEDICATIONS:1. Metformin 850 mg 3 times a day 2. Metoprolol 50 mg twice a day 3. Amlodipine 10 mg once a day 4. Atorvastatin 40 mg once a day 5. Lantus 15 units once a day 6. Victoza 7. Glimepiride 2 mg once a day During physical exam: GENERAL: A pleasant patient without any distress. VITAL SIGNS: See below HEENT: PERRLA, EOMI.low position of soft palate, Mallapati 4 . NECK: Supple. No JVD. LUNGS: Clear to percussion and to auscultation. Good air exchange. No wheezing or rhonchi. HEART: S1, S2 regular. ABDOMEN: Soft and nontender.[] EXTREMITIES: No clubbing or cyanosis. LUMBER BEARER: Awake, alert, and oriented x3. No focal deficit. Impressions: 1. Obstructive sleep apnea-hypopnea syndrome. Patient demonstrated great compliance with treatment, benefiting from treatment. 2. Obesity, patient increased weight on 5 pounds comparing with the previous visit. 3. Diabetes mellitus, hemoglobin A1c 8.4 according to patient. 4. Hypertension. 5. Status post 2 toes amputation. 6. Status post endarterectomy. Plan: 1. Continue using PAP equipment every night for the whole night. 2. To change air filter at least 1-2 times per month. 3. PAP unit should stay lower then position of the head. 4. Advised patient to remove all remaining water from humidifier canister daily and make it dry after each usage. Refill canister with fresh distilled water before each usage. 5. Sleep hygiene with regular time in bed for at least 8 hours. 6. Precautions related to driving. No driving if feel any sleepiness. 7. I will maintain prescription for PAP supplies including mask, tube, filters. 8. Follow up visit in 6 months or earlier if patient has any problems. 9. Watching and losing weight. Thank you very much for allowing me to participate in the management of your patient. Israel Garland MD, PhD, FAASM. Diplomat of [place] [employer], Sleep Medicine Board by [place] [employer] Claims Manager of [facility] [place] Objective - Vital Signs Vital signs: Vital Signs Temp 98.1 F 06/22/23 11:16 Pulse 69 06/22/23 11:16 Resp 16 06/22/23 11:16 BP 146/76 06/22/23 11:16 Pulse Ox 96 06/22/23 11:16 FiO2 Intake & Output 06/21/23 06/22/23 06/22/23 18:59 06:59 18:59 Weight 167.886 kg
== END ==
LOC: 3 N SLEEP 10:48
PROVIDERS: ATTEND Internal Medicine
DX: G47.33 Obstructive sleep apnea (adult) (pediatric) (principal); E66.9 Obesity, unspecified; E11.9 Type 2 diabetes mellitus without complications; I10 Essential (primary) hypertension; Z79.4 Long term (current) use of insulin; Z79.84 Long term (current) use of oral hypoglycemic drugs; Z79.899 Other long term (current) drug therapy; Z99.89 Dependence on other enabling machines and devices; Z98.890 Other specified postprocedural states; Z88.8 Allergy status to other drugs, medicaments and biological substances; Z68.44 Body mass index [BMI] 60.0-69.9, adult
CPT/HCPCS: 99212

== ENCOUNTER → 2024-02-22 | Outpatient (CLI) | payer MEDICARE ==
[2024-02-22 14:41] VITALS: BP 144/54; PULSE 74; RESP 18; TEMP 97.6
--- NOTE | 2024-02-22 14:55 | P.PROGSL ---
Subjective DATE: 02/22/2024 FOLLOW UP VISIT. Patient with obstructive sleep apnea hypopnea syndrome return to sleep center for follow-up visit. Information from previous visit have been reviewed. Patient is using PAP equipment every night for the whole night, getting PAP supplies in time. The patient does not have significant problems with the mask, PAP unit and humidification. [place] sleepiness scale is 8, which is normal. I checked information from PAP unit. PAP unit pressure 12 cm H2O. Usage is 100% for more then 4 hours, average 6.6 hours per night. Leak is 34 l/m, which is in acceptable range. Apnea Hypopnea Index is 0.8, which is normal. MEDICATIONS have been reviewed, please see below. Patient also takes ezetimibe and losartan. During physical exam: GENERAL: A pleasant patient without any distress. VITAL SIGNS: Please see below, weight is 381.8 lbs. HEENT: PERRLA, EOMI.low position of soft palate, Mallapati 4 . NECK: Supple. No JVD. LUNGS: Clear to percussion and to auscultation. Good air exchange. No wheezing or rhonchi. HEART: S1, S2 regular. ABDOMEN: Soft and nontender. Obese EXTREMITIES: No clubbing or cyanosis. FRACTIONATION SUPERVISOR: Awake, alert, and oriented x3. No focal deficit. Impressions: 1. Obstructive sleep apnea-hypopnea syndrome. Patient demonstrated great compliance with treatment, benefiting from treatment. 2. Obesity, BMI 65.5. 3. Diabetes mellitus. 4. Hypertension. 5. Status post endarterectomy. 6. Status post 2 toes amputation. Plan: 1. Continue using PAP equipment every night for the whole night. 2. Sleep hygiene with regular time in bed for at least 7.5-8 hours 3. PAP unit should stay lower then position of the head. 4. Advised patient to remove all remaining water from humidifier canister daily and make it dry after each usage. Refill canister with fresh distilled water before each usage. 5. Watching and losing weight. 6. Precautions related to driving. No driving if feel any sleepiness. 7. I will maintain prescription for PAP supplies including mask, tube, filters. 8. Follow up visit in 6 months or earlier if patient has any problems. Thank you very much for allowing me to participate in the management of your patient. Israel Garland MD, PhD, FAASM. Diplomat of [place] [employer], Sleep Medicine Board by [place] [employer] Strainer Mill Operator of [facility] [place] Objective - Vital Signs Vital Signs: Vital Signs Temp 97.6 F 02/22/24 14:41 Pulse 74 02/22/24 14:41 Resp 18 02/22/24 14:41 BP 144/54 02/22/24 14:41 Pulse Ox 94 L 02/22/24 14:41 FiO2 Intake & Output 02/21/24 02/22/24 02/22/24 18:59 06:59 18:59 Weight 173.045 kg Home Medications: Home Medications Medication Instructions Recorded Confirmed Type Metoprolol Tartrate [Lopressor] 50 mg PO BID #60 tab 12/28/13 02/22/24 Rx Aspirin EC [Ecotrin Low Dose] 81 mg PO HS 08/13/21 06/22/23 History Atorvastatin Calcium [Lipitor] 40 mg PO HS 08/13/21 02/22/24 History Ezetimibe [Zetia] 10 mg PO HS 08/13/21 06/22/23 History Insulin Glargine,Hum.rec.anlog 50 unit SQ DAILY@1700 08/13/21 06/22/23 History [Basaglar Kwikpen U-100] Losartan Potassium [Cozaar] 100 mg PO HS 08/13/21 06/22/23 History amLODIPine [Norvasc] 10 mg PO DAILY 08/13/21 02/22/24 History Liraglutide [Victoza 3-Sterling] 1.2 mg SQ DAILY@1700 02/22/22 06/22/23 History Albuterol Inhaler [Ventolin Hfa PRN 06/22/23 History Inhaler] Cyclobenzaprine [Flexeril] 10 mg PO DIRECTED PRN 06/22/23 02/22/24 History metFORMIN HCL [Glucophage] 850 mg PO TID 06/22/23 02/22/24 History Insulin Glargine,Hum.rec.anlog 50 units INJ DAILY 02/22/24 02/22/24 History [Lantus Solostar Pen]
== END ==
LOC: 3 N SLEEP 13:58
PROVIDERS: ATTEND Internal Medicine
DX: G47.33 Obstructive sleep apnea (adult) (pediatric) (principal); E66.9 Obesity, unspecified; E11.9 Type 2 diabetes mellitus without complications; I10 Essential (primary) hypertension; Z98.890 Other specified postprocedural states; Z99.89 Dependence on other enabling machines and devices; Z88.8 Allergy status to other drugs, medicaments and biological substances; Z79.899 Other long term (current) drug therapy; Z79.84 Long term (current) use of oral hypoglycemic drugs; Z79.4 Long term (current) use of insulin
CPT/HCPCS: 99212